=== PATIENT | male | born 1985 ===

== ENCOUNTER 2016-10-14 16:31 | Emergency (ER) | payer OTHER ==
[2016-10-14 16:40] VITALS: BP 160/97; PULSE 77; RESP 16; TEMP 97.8; O2SAT 99
[2016-10-14] MEDS ORDERED: Absorbable Gelatin Sponge Size 12-7 ONE (17:12)
--- NOTE | 2016-10-14 17:46 | ED PDOC ---
HPI: General Adult Time Seen by Provider: 10/14/16 16:43 Chief Complaint (Nursing): Upper Extremity Problem/Injury Chief Complaint (Provider): Left middle finger injury - Last night at work History Per: Patient History/Exam Limitations: no limitations Onset/Duration Of Symptoms: Days Have you had recent travel within the past 21 days to any of the following countries: [place], [place], [place] or [place]?: No Current Symptoms Are (Timing): Still Present Additional Complaint(s): Cut finger on a knife at work. Past Medical History Reviewed: Historical Data, Nursing Documentation, Vital Signs Vital Signs: Last Vital Signs Temp 97.8 F 10/14/16 16:36 Pulse 77 10/14/16 16:36 Resp 16 10/14/16 16:36 BP 160/97 H 10/14/16 16:36 Pulse Ox 99 10/14/16 16:36 - Medical History PMH: No Chronic Diseases - Surgical History Surgical History: No Surg Hx - Family History Family History: States: No Known Family Hx - Home Medications Home Medications: Ambulatory Orders Medication Instructions Recorded Cephalexin [Keflex] 500 mg PO BID #14 capsule 10/14/16 - Allergies Allergies/Adverse Reactions: Allergies Allergy/AdvReac Type Severity Reaction Status Date / Time No Known Allergies Allergy Verified 10/14/16 16:39 Review of Systems ROS Statement: Except As Marked, All Systems Reviewed And Found Negative Constitutional: Negative for: Fever, Chills Musculoskeletal: Negative for: Other Skin: Positive for: Other ((+) bleeding, left middle ) Physical Exam - Reviewed Nursing Documentation Reviewed: Yes Vital Signs Reviewed: Yes - Physical Exam Appears: Positive for: Well, Non-toxic, No Acute Distress Head Exam: Positive for: ATRAUMATIC, NORMAL INSPECTION, NORMOCEPHALIC Skin: Positive for: Warm. Negative for: Normal Color ((+) avulsion, distal 3rd nail, mild active bleeding ) Eye Exam: Positive for: Normal appearance ENT: Positive for: Normal ENT Inspection Neck: Positive for: Normal, Painless ROM Respiratory: Negative for: Accessory Muscle Use, Respiratory Distress Back: Positive for: Normal Inspection Extremity: Positive for: Normal ROM Neurologic/Psych: Positive for: Alert, Oriented - ECG O2 Sat by Pulse Oximetry: 99 Medical Decision Making Medical Decision Making: Wound irrigated. Gel foam applied. Disposition - Clinical Impression Clinical Impression: Nail avulsion, Tetanus toxoid vaccination administered at current visit - Patient ED Disposition Is Patient to be Admitted: No - Disposition Disposition: Routine/Home Disposition Time: 17:50 Condition: GOOD Additional Instructions: Do not remove dressing for for 48 hours. Do not pull off white foam. Prescriptions: Cephalexin [Keflex] 500 mg PO BID #14 capsule Instructions: Nail Avulsion (ED)
== END 2016-10-14 18:10 | disposition home or self-care (01) ==
LOC: H.ER 16:31
DX: S69.92XA Unspecified injury of left wrist, hand and finger(s), initial encounter (principal); W26.0XXA Contact with knife, initial encounter; Y93.9 Activity, unspecified; Y99.0 Civilian activity done for income or pay